=== PATIENT | male | born 1950 | race Caucasian/White ===

== ENCOUNTER → 2016-09-29 | Outpatient (REF) | payer BC ==
[2016-09-29 12:20] LABS: PHOSPHORUS LEVEL 2.8 MG/DL (2.5-4.9)
== END ==
LOC: M LAB REF 11:51
PROVIDERS: ATTEND Internal Medicine
DX: N18.3 Chronic kidney disease, stage 3 (moderate) (principal); N25.81 Secondary hyperparathyroidism of renal origin; E11.21 Type 2 diabetes mellitus with diabetic nephropathy

== ENCOUNTER → 2016-10-22 | Outpatient (REF) | payer BC ==
[2016-10-22 14:12] LABS: PERCENT SATURATION 31.2 % (19.7-37.4)
[2016-10-22 14:19] LABS: FOLATE 8.5 NG/ML (>5.4)
== END ==
LOC: M LAB REF 13:23
PROVIDERS: ATTEND Internal Medicine
DX: N18.3 Chronic kidney disease, stage 3 (moderate) (principal); E03.9 Hypothyroidism, unspecified; Z98.84 Bariatric surgery status

== ENCOUNTER → 2017-02-15 | Outpatient (CLI) | payer BC ==
[~2017-02-15] VITALS: Ht 170.2 cm; Wt 113.4 kg
[~2017-02-15] MED LIST: AMLO1TAB36 PO; DRIS50002 PO; FAMO1TAB25 PO; FEXO180T58 PO; LEVO50TA5 PO; LIDOCAINE 2% INJ 100 MG/5 ML SDV (FOR ANES.) As Ordered ONE; NS 1,000 ML IV ONE; PROPOFOL 500 MG/50 ML VIAL As Ordered ONE; ROCA0.25 PO; VITA100037 PO
--- NOTE | 2017-02-15 11:08 | ROOR ---
Patient Name: Elieser Wang Procedure Date: 02/15/2017 10:42 AM Date of : 1950 Age: 66 Room: [facility] Gender: Male Note Status: Finalized Procedure: Total Colonoscopy to Cecum Indications: Screening for colorectal malignant neoplasm Providers: Carroll Harden MD Referring MD: RAEGAN MODI JR, MD Requesting Provider: Medicines: Monitored Anesthesia Care Complications: No immediate complications. Procedure: Pre-Anesthesia Assessment: - The heart rate, respiratory rate, oxygen saturations, blood pressure, adequacy of pulmonary ventilation, and response to care were monitored throughout the procedure. The Colonoscope was introduced through the anus and advanced to the cecum, identified by appendiceal orifice and ileocecal valve. The colonoscopy was performed without difficulty. The patient tolerated the procedure well. The quality of the bowel preparation was good. Findings: The perianal and digital rectal examinations were normal. Non-bleeding internal hemorrhoids were found during retroflexion. The hemorrhoids were small and Grade I (internal hemorrhoids that do not prolapse). Scattered small-mouthed diverticula were found in the recto-sigmoid colon, sigmoid colon and descending colon. The exam was otherwise without abnormality on direct and retroflexion views. Impression: - Non-bleeding internal hemorrhoids. - Diverticulosis in the recto-sigmoid colon, in the sigmoid colon and in the descending colon. - The examination was otherwise normal on direct and retroflexion views. - No specimens collected. - The exam was otherwise normal to the cecum. Recommendation: - Patient has a contact number available for emergencies. The signs and symptoms of potential delayed complications were discussed with the patient. Return to normal activities tomorrow. Written discharge instructions were provided to the patient. - High fiber diet. - Discharge patient to home. - Continue present medications. - Repeat colonoscopy in 10 years for screening purposes. - Return to referring physician. - The findings and recommendations were discussed with the patient's family. Carroll Harden MD Carroll Harden MD 02/15/2017 11:07:52 AM This report has been signed electronically. Number of Addenda: 0 Note Initiated On: 02/15/2017 10:42 AM Estimated Blood Loss: Estimated blood loss: none.
[2017-02-15 11:25] VITALS: BP 195/101
== END | disposition home or self-care (01) ==
LOC: M OPP 09:16
PROVIDERS: ATTEND Internal Medicine Gastroenterology
DX: Z12.11 Encounter for screening for malignant neoplasm of colon (principal); K64.0 First degree hemorrhoids; K57.30 Diverticulosis of large intestine without perforation or abscess without bleeding; Z86.010 Personal history of colon polyps; I12.9 Hypertensive chronic kidney disease with stage 1 through stage 4 chronic kidney disease, or unspecified chronic kidney disease; E11.9 Type 2 diabetes mellitus without complications; E03.9 Hypothyroidism, unspecified; G47.8 Other sleep disorders; G47.30 Sleep apnea, unspecified; R06.83 Snoring; N18.9 Chronic kidney disease, unspecified; Z87.442 Personal history of urinary calculi; Z87.448 Personal history of other diseases of urinary system; Z98.84 Bariatric surgery status; Z79.899 Other long term (current) drug therapy

== ENCOUNTER → 2017-07-15 | Outpatient (REF) | payer BC ==
[~2017-07-15] MED LIST changes: -AMLO1TAB36 PO; +AMLO1TAB37 PO; -LIDOCAINE 2% INJ 100 MG/5 ML SDV (FOR ANES.) As Ordered ONE; -NS 1,000 ML IV ONE; -PROPOFOL 500 MG/50 ML VIAL As Ordered ONE; -VITA100037 PO; +VITA100067 PO
[2017-07-15 19:24] LABS: FOLATE 9.7 NG/ML
== END ==
LOC: M LAB REF 17:31
PROVIDERS: ATTEND Internal Medicine
DX: I12.9 Hypertensive chronic kidney disease with stage 1 through stage 4 chronic kidney disease, or unspecified chronic kidney disease (principal); Z98.84 Bariatric surgery status

== ENCOUNTER → 2017-07-30 | Outpatient (CLI) | payer OTHER ==
--- NOTE | 2017-07-30 12:49 | REP ---
MRI CERVICAL SPINE WITHOUT CONTRAST: HISTORY: Neck pain. 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 A disc bulge with associated osteophyte formation is present at the C3-4 level. There is minimal deformity of the spinal cord. The C3 neural foramina are patent. A disc bulge with associated osteophyte formation is present at the C4-5 level. There is mild spinal cord compression. Bilateral uncinate process hypertrophy is present. This produces severe and moderate narrowing of the right and left C4 neural foramina respectively. A disc bulge and small disc protrusion central and eccentric to the left with associated osteophyte formation are present at the C5-6 level. There is minimal spinal cord compression. Bilateral uncinate process hypertrophy is present. This produces severe and moderate narrowing of the right and left C5 neural foramina respectively. A disc bulge with associated osteophyte formation is present at the C6-7 level. There is moderate effacement of the thecal sac without spinal cord compression. Bilateral uncinate process hypertrophy is present. This produces moderate narrowing of the C6 neural foramina. A disc bulge and small disc protrusion central and eccentric to the right with associated osteophyte formation are present at the C7-T1 level. There is mild effacement of the thecal sac without spinal cord compression. A small right intraforaminal disc protrusion is present. There is severe narrowing of the right C7 neural foramen. The left C7 neural foramen is patent. There is no other disc bulge or herniation. The remaining neural foramina are patent. Small focal areas of increased signal intensity on T2-weighted images are present in the spinal cord at the C4-5 level. This represents myelomalacia. The C3-4 through C7-T1 intervertebral discs are decreased in height consistent with disc degeneration. A hemangioma is present in the C7 vertebral body. Increased signal intensity on T2-weighted images is present in the end plates of the C4-6 vertebral bodies. This represents degenerative change. There is ectasia of the left vertebral artery. IMPRESSION: 1. There is cervical spondylosis at the C3-4 through C7-T1 levels most significant at the C4-5 and C5-6 levels where there is mild and minimal spinal cord compression respectively. 2. There is focal myelomalacia at the C4-5 level. Signed by Sanjay Glez MD 07/30/2017 02:17 P
== END ==
LOC: M PLARAD 10:27
PROVIDERS: ATTEND Physical Medicine & Rehabilitation
DX: M54.2 Cervicalgia (principal)

== ENCOUNTER 2017-08-29 01:22 | Emergency (ER) | payer BC, OTHER | END 2017-08-29 04:10 | disposition left against medical advice (07) | LOC: M ED 01:22 | DX: Z53.29 Procedure and treatment not carried out because of patient's decision for other reasons (principal) ==

== ENCOUNTER → 2018-04-15 | Outpatient (CLI) | payer OTHER | LOC: M PLARAD 07:33 | DX: M50.221 Other cervical disc displacement at C4-C5 level (principal); M50.222 Other cervical disc displacement at C5-C6 level; M50.223 Other cervical disc displacement at C6-C7 level; M50.21 Other cervical disc displacement, high cervical region; M50.23 Other cervical disc displacement, cervicothoracic region | CPT/HCPCS: 72141 ==

== ENCOUNTER → 2018-06-07 | Outpatient (REF) | payer OTHER ==
[2018-06-07 16:28] LABS: IRON (FE) 83 UG/DL (65-175); PERCENT SATURATION 33.5 % (19.7-50.0); PHOSPHORUS LEVEL 3.2 MG/DL (2.5-4.9); TOTAL IRON BINDING CAPACITY 248 UG/DL (250-450)
[2018-06-07 16:47] LABS: FOLATE 9.5 NG/ML
[2018-06-07 16:47] LABS: PTH INTACT 86.3 PG/ML (18.5-88.0)
== END ==
LOC: M LAB REF 14:56
DX: Z98.84 Bariatric surgery status (principal); E11.22 Type 2 diabetes mellitus with diabetic chronic kidney disease; N25.81 Secondary hyperparathyroidism of renal origin; N18.3 Chronic kidney disease, stage 3 (moderate)

== ENCOUNTER → 2018-12-01 | Outpatient (REF) | payer MEDICARE ==
[~2018-12-01] MED LIST changes: -DRIS50002 PO; +DRIS50003 PO; +[UNRECOGNIZED DRUG - CODE] BLADIN; +[UNRECOGNIZED DRUG - CODE] TOP
[2018-12-01 18:24] LABS: PHOSPHORUS LEVEL 3.1 MG/DL (2.5-4.9)
[2018-12-01 18:34] LABS: PTH INTACT 108.6 PG/ML (18.5-88.0)
== END ==
LOC: M LAB REF 17:30
PROVIDERS: ATTEND Internal Medicine
DX: N18.3 Chronic kidney disease, stage 3 (moderate) (principal); E11.22 Type 2 diabetes mellitus with diabetic chronic kidney disease; N25.81 Secondary hyperparathyroidism of renal origin

== ENCOUNTER → 2019-06-12 | Outpatient (REF) | payer MEDICARE ==
[2019-06-12 16:27] LABS: PERCENT SATURATION 21.6 % (19.7-50.0)
[2019-06-12 16:36] LABS: PTH INTACT 69.2 PG/ML (18.5-88.0)
[2019-06-14 10:41] LABS: HEPATITIS C VIRUS ABY INDEX 0.2 INDEX (<0.8)
== END ==
LOC: M LAB REF 15:54
PROVIDERS: ATTEND Internal Medicine
DX: Z01.89 Encounter for other specified special examinations (principal); Z98.84 Bariatric surgery status; N25.81 Secondary hyperparathyroidism of renal origin; Z79.899 Other long term (current) drug therapy

== ENCOUNTER 2019-07-06 09:49 | Emergency (ER) | payer MEDICARE ==
[~2019-07-06] VITALS: Ht 170.2 cm; Wt 113.6 kg
[2019-07-06] MEDS ORDERED: ALBU8.5H (10:37)
[2019-07-06] MEDS ORDERED: PRED20TA (10:37)
[2019-07-06] MEDS ORDERED: DOXY100C37 (10:37)
[2019-07-06 10:38] LABS: BASO # 0.1 10^3/uL (0.0-0.2); BASO % 0.7 % (0.0-1.0); EOS # 0.2 10^3/uL (0.0-0.5); EOS % 1.5 % (0.0-3.0); HEMATOCRIT 41.8 % (42.0-52.0); HEMOGLOBIN 13.5 g/dl (13.5-17.5); LYMPH # 1.4 10^3/uL (1.5-5.0); LYMPH % 13.6 % (24.0-44.0); MEAN CORPUSCULAR HEMOGLOBIN 28.8 pg (27.0-33.0); MEAN CORPUSCULAR HGB CONC 32.3 g/dl (32.0-36.5); MEAN CORPUSCULAR VOLUME 89.1 fl (80.0-96.0); MONO # 0.8 10^3/uL (0.0-0.8); MONO % 7.5 % (0.0-5.0); NEUTROPHILS # 7.5 10^3/uL (1.5-8.5); NEUTROPHILS % 74.3 % (36.0-66.0); PLATELET COUNT, AUTOMATED 344 10^3/uL (150-450); RED BLOOD COUNT 4.69 10^6/uL (4.30-6.10); WHITE BLOOD COUNT 10.1 10^3/uL (4.0-10.0)
--- NOTE | 2019-07-06 10:55 | REP ---
Portable chest x-ray: Single view. History: Dyspnea and cough. Comparison chest x-ray: November 04, 2009. Findings: EKG monitoring electrodes overlie the chest. There are minimal degenerative changes in the thoracic spine. Heart size is borderline unchanged. The pleural angles are sharp. No infiltrate is seen. Pulmonary vasculature is not increased. No significant bony abnormality is seen. Impression: No acute disease. No infiltrate seen. Electronically Signed by Jovany Momin MD 07/06/2019 10:46 A
[2019-07-06 11:04] LABS: CALCIUM LEVEL 8.9 MG/DL (8.8-10.2); CREATININE FOR GFR 1.76 MG/DL (0.70-1.30); GLOMERULAR FILTRATION RATE 41.4 (>49); POTASSIUM SERUM 3.9 MEQ/L (3.5-5.1)
[2019-07-06 11:08] LABS: INFLUENZA A AMPLIFICATION NEGATIVE (NEGATIVE); INFLUENZA B AMPLIFICATION NEGATIVE (NEGATIVE)
--- NOTE | 2019-07-06 13:02 | REP ---
CT chest without contrast: History: Shortness of breath. Comparison is made with today's chest x-ray. CT findings: There is no evidence of pleural or pericardial effusion. There is mild ectasia of the ascending aorta, 4.3 cm in AP dimension. There is a calcification in the right thyroid gland. A large gallstone is visible in right upper quadrant. This gallstone measures 4.1 cm in greatest diameter. No adrenal abnormalities observed. The patient is status post gastric bypass. There are multifocal areas of mild peribronchial thickening consistent with bronchitis. Bronchi are not dilated. There are several areas of peribronchovascular opacity in the left lower lobe and to a lesser extent in the right lower lobe and lingula consistent with early bronchopneumonia. Tree in bud type configuration which generally suggests inflammatory changes. No endobronchial lesion is appreciated. Bone window settings show no bony destructive lesion. There are some degenerative disc changes in the thoracic spine. Impression: Findings consistent with bronchitis with patchy peribronchovascular areas of airspace consolidation consistent with early bronchopneumonia. There is a large gallstone in the gallbladder. Electronically Signed by Jovany Momin MD 07/06/2019 12:53 P
[2019-07-06 15:15] VITALS: BP 182/94
[2019-07-06] MEDS ORDERED: PRED20TA PO (15:19)
[2019-07-06] MEDS ORDERED: CEFD300CAP PO (15:19)
[2019-07-06] MEDS ORDERED: CEFDINIR 300 MG CAP (OMNICEF) PO ONE (15:30)
[2019-07-06 15:46] VITALS: O2SAT 91
--- NOTE | 2019-07-06 20:51 | ECGEPIP ---
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
== END 2019-07-06 16:15 | disposition home or self-care (01) ==
LOC: M ED 09:49
DX: J40 Bronchitis, not specified as acute or chronic (principal); I10 Essential (primary) hypertension; G47.30 Sleep apnea, unspecified; E03.9 Hypothyroidism, unspecified; Z98.84 Bariatric surgery status; Z79.899 Other long term (current) drug therapy

== ENCOUNTER → 2019-10-04 | Outpatient (CLI) | payer MEDICARE ==
[~2019-10-04] MED LIST changes: +ALBU8.5H; +CEFD300CAP PO; +DOXY100C37; +PRED20TA; +PRED20TA PO
--- NOTE | 2019-10-04 12:47 | REP ---
Left knee five views : There is no fracture or dislocation. Mineralization and joint spaces are normal. There are no calcifications or foreign bodies. Impression: Negative left knee . Electronically Signed by Bar Souza MD 10/04/2019 12:39 P
== END ==
LOC: M WUC 11:47
PROVIDERS: ATTEND Internal Medicine
DX: M25.562 Pain in left knee (principal)

== ENCOUNTER → 2019-10-18 | Outpatient (CLI) | payer MEDICARE ==
--- NOTE | 2019-10-18 15:02 | REP ---
Clinical: Pain. Technique: AP, lateral and oblique views of the left fifth toe. Findings: Examination is limited and underlying degenerative changes are appreciated. Fracture at the base of the proximal phalanx cannot be excluded. Correlation is recommended. No subcutaneous emphysema or foreign body. Impression: Cannot exclude fracture at the base of the proximal phalanx. Electronically Signed by Juan Colin MD 10/18/2019 02:54 P
== END ==
LOC: M WUC 14:35
PROVIDERS: ATTEND Nurse Practitioner Family
DX: M79.675 Pain in left toe(s) (principal)

== ENCOUNTER → 2020-01-30 | Outpatient (REF) | payer MEDICARE ==
[2020-01-30 17:04] LABS: PHOSPHORUS LEVEL 3.3 MG/DL (2.5-4.9)
[2020-01-30 17:15] LABS: PTH INTACT 123.2 PG/ML (18.5-88.0)
== END ==
LOC: M LAB REF 16:11
PROVIDERS: ATTEND Internal Medicine
DX: N18.3 Chronic kidney disease, stage 3 (moderate) (principal); N25.81 Secondary hyperparathyroidism of renal origin; E11.22 Type 2 diabetes mellitus with diabetic chronic kidney disease

== ENCOUNTER → 2021-02-18 | Outpatient (REF) | payer MEDICARE ==
[~2021-02-18] MED LIST changes: -DOXY100C37; +DOXY1CAP62; +FAMO10TA50 PO; -FAMO1TAB25 PO; +NEOM1AMP TOP; -[UNRECOGNIZED DRUG - CODE] TOP
== END ==
LOC: M LAB REF 16:48
PROVIDERS: ATTEND Internal Medicine
DX: N18.32 Chronic kidney disease, stage 3b (principal); N25.81 Secondary hyperparathyroidism of renal origin

== ENCOUNTER → 2021-11-18 | Outpatient (CLI) | payer MEDICARE ==
[~2021-11-18] MED LIST changes: +DOXY-443; -DOXY1CAP62; +FEXO-117 PO; -FEXO180T58 PO
== END ==
LOC: M WUC 15:18
PROVIDERS: ATTEND Internal Medicine
DX: M79.644 Pain in right finger(s) (principal)

== ENCOUNTER → 2021-12-04 | Outpatient (CLI) | payer MEDICARE | LOC: M RAD 13:55 | PROVIDERS: ATTEND Orthopaedic Surgery Hand Surgery | DX: R22.31 Localized swelling, mass and lump, right upper limb (principal) ==

== ENCOUNTER → 2021-12-12 | Outpatient (CLI) | payer MEDICARE ==
[~2021-12-12] MED LIST changes: +DIAZ5TAB PO; +diazePAM 5MG TABLET PO ONE
== END ==
LOC: M RAD 08:12
PROVIDERS: ATTEND Orthopaedic Surgery Hand Surgery
DX: M79.644 Pain in right finger(s) (principal)

== ENCOUNTER → 2021-12-18 | Outpatient (CLI) | payer MEDICARE ==
[~2021-12-18] MED LIST changes: +ATOR1TAB21; +BENA-8; +ERGO500029; +FAMO20TA5; +LEVO100T5; +XARE15TA; -diazePAM 5MG TABLET PO ONE
== END ==
LOC: M PLAIMG 08:01
PROVIDERS: ATTEND Orthopaedic Surgery Hand Surgery
DX: M79.644 Pain in right finger(s) (principal)

== ENCOUNTER 2021-12-22 08:08 | Emergency (ER) | payer MEDICARE ==
[~2021-12-22] VITALS: Ht 170.2 cm; Wt 115.9 kg
[~2021-12-22 08:08] MED LIST changes: -ATOR1TAB21; -BENA-8; -ERGO500029; -FAMO20TA5; -LEVO100T5; -XARE15TA
[2021-12-22] MEDS ORDERED: FAMO20TA5 (08:22)
[2021-12-22] MEDS ORDERED: ATOR1TAB21 (08:22)
[2021-12-22] MEDS ORDERED: LEVO100T5 (08:22)
[2021-12-22] MEDS ORDERED: BENA-8 (08:22)
[2021-12-22] MEDS ORDERED: ERGO500029 (08:22)
[2021-12-22] MEDS ORDERED: XARE15TA (08:22)
[2021-12-22] MEDS ORDERED: ONDANSETRON 4MG/2ML VIAL IV ONE (11:40)
[2021-12-22] MEDS ORDERED: NS 1,000 ML IV ONE (11:40)
[2021-12-22 12:10] LABS: BASO % 0.2 % (0.0-1.0); EOS % 0.1 % (0.0-3.0); HEMATOCRIT 37.4 % (42.0-52.0); HEMOGLOBIN 12.2 g/dl (13.5-17.5); LYMPH # 0.2 10^3/uL (1.5-5.0); LYMPH % 2.8 % (24.0-44.0); MEAN CORPUSCULAR HEMOGLOBIN 28.9 pg (27.0-33.0); MEAN CORPUSCULAR HGB CONC 32.6 g/dl (32.0-36.5); MEAN CORPUSCULAR VOLUME 88.6 fl (80.0-96.0); MONO # 0.6 10^3/uL (0.0-0.8); MONO % 7.3 % (2.0-8.0); NEUTROPHILS # 7.6 10^3/uL (1.5-8.5); NEUTROPHILS % 88.8 % (36.0-66.0); PLATELET COUNT, AUTOMATED 174 10^3/uL (150-450); RED BLOOD COUNT 4.22 10^6/uL (4.30-6.10); WHITE BLOOD COUNT 8.6 10^3/uL (4.0-10.0)
[2021-12-22 13:16] LABS: ALBUMIN 3.2 GM/DL (3.2-5.2); BILIRUBIN,TOTAL 4.5 MG/DL (0.2-1.0); CALCIUM LEVEL 8.2 MG/DL (8.8-10.2); CREATININE FOR GFR 2.29 MG/DL (0.70-1.30); GLOMERULAR FILTRATION RATE 30.3 (>49); POTASSIUM SERUM 3.9 MEQ/L (3.5-5.1); TOTAL PROTEIN 6.2 GM/DL (6.4-8.2)
[2021-12-22] MEDS ORDERED: METOCLOPRAMIDE INJ 10MG/2ML VIAL (J2765 PER 1) IV ONE (13:30)
[2021-12-22] MEDS ORDERED: MORPHINE 2 MG/ML 1ML VIAL IV ONE (13:30)
[2021-12-22] MEDS ORDERED: hydrALAZINE 20MG/ML 1ML VIAL (J0360 PER 20MG) IV ONE (14:25)
[2021-12-22 14:31] LABS: BILIRUBIN,DIRECT 3.1 MG/DL (0.0-0.2)
[2021-12-22] MEDS ORDERED: PIPERACILLIN/TAZOBACTAM SOD 3.375 GM in D5W MINI-BAG PLUS 50 ML IV ONE (15:30)
[2021-12-22] MEDS ORDERED: ACETAMINOPHEN SUSP DYE FREE 160 MG/5 ML UDC PO ONE (15:40)
[2021-12-22 17:09] LABS: HEPATITIS B CORE ANTIBODY IGM NEGATIVE (NEGATIVE); HEPATITIS B SURFACE ANTIGEN NEGATIVE (NEGATIVE); HEPATITIS C VIRUS ABY INDEX 0.1 INDEX (<0.8)
[2021-12-22] MEDS ORDERED: BENAZEPRIL 20 MG TAB PO ONE (19:35)
[2021-12-22 21:58] VITALS: BP 186/89
[2021-12-22] MEDS ORDERED: cloNIDine 0.1MG TABLET PO ONE (22:00)
[2021-12-22 22:04] VITALS: BP 189/89
== END 2021-12-22 22:17 | disposition short-term general hospital (02) ==
LOC: M ED 08:08
DX: R94.5 Abnormal results of liver function studies (principal); R50.9 Fever, unspecified; I10 Essential (primary) hypertension; E03.9 Hypothyroidism, unspecified; E78.5 Hyperlipidemia, unspecified; G47.33 Obstructive sleep apnea (adult) (pediatric); K21.9 Gastro-esophageal reflux disease without esophagitis; Z98.84 Bariatric surgery status; J30.89 Other allergic rhinitis; Z79.899 Other long term (current) drug therapy; Z79.890 Hormone replacement therapy; Z79.01 Long term (current) use of anticoagulants
CPT/HCPCS: 71045; 74176; 76705; 80053; 81001; 82248; 83605; 83690; 83880; 84484; 85025; 86705; 86709; 86803; 87040; 87077; 87186; 87340; 87798; 93005; 93041; 96361; 96365; 96375; 99285; J0360; J2270; J2543; J2765

== ENCOUNTER → 2022-09-01 | Outpatient (REF) | payer MEDICARE ==
[~2022-09-01] MED LIST changes: +ATOR1TAB21; +BENA-8; +ERGO500029; +FAMO20TA5; +LEVO100T5; +XARE15TA
[2022-09-01 17:14] LABS: URIC ACID 6.1 MG/DL (3.7-9.2)
[2022-09-01 17:17] LABS: PTH INTACT 53.1 PG/ML (18.5-88.0)
== END ==
LOC: M LAB REF 16:21
PROVIDERS: ATTEND Internal Medicine
DX: N18.32 Chronic kidney disease, stage 3b (principal)

== ENCOUNTER → 2022-12-03 | Outpatient (CLI) | payer MEDICARE | LOC: M PLAIMG 08:07 | PROVIDERS: ATTEND Internal Medicine | DX: K86.2 Cyst of pancreas (principal) ==

== ENCOUNTER → 2023-01-07 | Outpatient (REF) | payer MEDICARE | LOC: M LAB REF 12:17 | PROVIDERS: ATTEND Internal Medicine | DX: N18.32 Chronic kidney disease, stage 3b (principal) ==

== ENCOUNTER → 2023-08-02 | Outpatient (REF) | payer MEDICARE ==
[2023-08-02 17:36] LABS: PHOSPHORUS LEVEL 3.5 MG/DL (2.4-5.1); PTH INTACT 52.4 PG/ML (18.5-88.0)
== END ==
LOC: M LAB REF 16:27
PROVIDERS: ATTEND Internal Medicine
DX: N18.32 Chronic kidney disease, stage 3b (principal)

== ENCOUNTER → 2023-08-09 | Outpatient (CLI) | payer MEDICARE | LOC: M PLAIMG 13:09 | PROVIDERS: ATTEND Nurse Practitioner Family | DX: I71.40 Abdominal aortic aneurysm, without rupture, unspecified (principal) ==

== ENCOUNTER → 2023-10-07 | Outpatient (CLI) | payer MEDICARE | LOC: M RAD 10:37 | PROVIDERS: ATTEND Internal Medicine | DX: K86.2 Cyst of pancreas (principal) ==

== ENCOUNTER 2024-05-11 13:58 | Emergency (ER) | payer MEDICARE ==
[~2024-05-11] VITALS: Ht 172.7 cm; Wt 112.2 kg
[~2024-05-11 13:58] MED LIST changes: +DOXY-323; -DOXY-443
[2024-05-11 16:31] VITALS: BP 153/86; TEMP 97.3; O2SAT 96
== END 2024-05-11 16:44 | disposition home or self-care (01) ==
LOC: EDBD 13:58 → M ED 13:58
DX: S16.1XXA Strain of muscle, fascia and tendon at neck level, initial encounter (principal); S00.93XA Contusion of unspecified part of head, initial encounter; S40.012A Contusion of left shoulder, initial encounter; S30.811A Abrasion of abdominal wall, initial encounter; V43.52XA Car driver injured in collision with other type car in traffic accident, initial encounter; Y92.9 Unspecified place or not applicable; Y93.9 Activity, unspecified; Y99.9 Unspecified external cause status; M19.012 Primary osteoarthritis, left shoulder; M48.02 Spinal stenosis, cervical region; J30.89 Other allergic rhinitis; Z79.899 Other long term (current) drug therapy

== ENCOUNTER → 2024-05-17 | Outpatient (CLI) | payer MEDICARE | LOC: M PLAIMG 11:09 | PROVIDERS: ATTEND Thoracic Surgery (Cardiothoracic Vascular Surgery) | DX: I77.810 Thoracic aortic ectasia (principal) ==

== ENCOUNTER → 2024-10-26 | Outpatient (CLI) | payer MEDICARE ==
[~2024-10-26] MED LIST changes: -DOXY-323; +DOXY-441; -FEXO-117 PO; +FEXO-193 PO
== END ==
LOC: M RAD 15:51
PROVIDERS: ATTEND Internal Medicine
DX: K86.2 Cyst of pancreas (principal); N28.1 Cyst of kidney, acquired

== ENCOUNTER 2024-11-30 10:26 | Observation (INO) | payer MEDICARE ==
[~2024-11-30] VITALS: Ht 170.2 cm; Wt 109.6 kg
[~2024-11-30 10:26] MED LIST changes: -ATOR1TAB21; +ATOR1TAB21 PO; -BENA-8; +BENA-8 PO; -ERGO500029; +ERGO500029 PO; -FAMO20TA5; +FAMO20TA5 PO; -LEVO100T5; +LEVO100T5 PO; -XARE15TA; +XARE15TA PO; +[UNRECOGNIZED DRUG - CODE] BLADIN; -[UNRECOGNIZED DRUG - CODE] BLADIN
[2024-11-30 11:25] LABS: ALBUMIN 3.3 G/DL (3.2-5.2); BILIRUBIN,DIRECT 0.3 MG/DL (<0.4); BILIRUBIN,TOTAL 0.7 MG/DL (0.3-1.2); CALCIUM LEVEL 8.1 MG/DL (8.3-10.6); CREATININE FOR GFR 1.69 MG/DL (0.70-1.30); GLOMERULAR FILTRATION RATE 42.6 (>42); POTASSIUM SERUM 4.4 MMOL/L (3.5-5.1); TOTAL PROTEIN 6.5 G/DL (5.7-8.2)
[2024-11-30 13:14] LABS: BASO % 0.3 % (0.0-1.0); EOS % 0.1 % (0.0-3.0); HEMATOCRIT 39.2 % (42.0-52.0); HEMOGLOBIN 13.2 g/dl (13.5-17.5); LYMPH # 0.1 10^3/uL (1.5-5.0); LYMPH % 0.9 % (24.0-44.0); MEAN CORPUSCULAR HEMOGLOBIN 29.7 pg (27.0-33.0); MEAN CORPUSCULAR HGB CONC 33.7 g/dl (32.0-36.5); MEAN CORPUSCULAR VOLUME 88.3 fl (80.0-96.0); MONO # 0.5 10^3/uL (0.0-0.8); MONO % 5.1 % (2.0-8.0); NEUTROPHILS # 9.2 10^3/uL (1.5-8.5); NEUTROPHILS % 93.1 % (36.0-66.0); PLATELET COUNT, AUTOMATED 176 10^3/uL (150-450); RED BLOOD COUNT 4.44 10^6/uL (4.30-6.10); WHITE BLOOD COUNT 9.9 10^3/uL (4.0-10.0)
[2024-11-30] MEDS: NS (Normal Saline) 0.9% 1,000 ML IV ONE ×2 (13:20→18:34)
[2024-11-30] MEDS: LIDOCAINE 2% 5ML JELLY UROJET TOP ONE (14:49)
[2024-11-30 15:23] LABS: KETONE, URINE AUTO RFX NEGATIVE (NEGATIVE); LEUKOCYTE ESTERASE UR AUTO RFX NEGATIVE (NEGATIVE); MUCUS, URINE RFX SMALL (NEGATIVE); NITRITE, URINE AUTO RFX NEGATIVE (NEGATIVE); RBC, URINE AUTO RFX 9 /HPF (0-3); SQUAM EPITHELIAL CELL UR AURFX 0 /HPF (0-6); WBC, URINE AUTO RFX 0 /HPF (0-3)
[2024-11-30] MEDS ORDERED: ISOVUE-370 76% 100ML VIAL As Ordered ONE (17:44)
[2024-11-30] MEDS ORDERED: CALC1CAP31 PO (21:28)
[2024-11-30] MEDS ORDERED: MONT10TA97 PO (21:30)
[2024-11-30] MEDS ORDERED: AMLO1TAB24 PO (21:30)
[2024-11-30] MEDS ORDERED: HOME MED LIST COMPLETE! XX SCH (21:30)
[2024-11-30] MEDS ORDERED: ONDANSETRON 4MG 2ML VIAL IV PRN (22:00)
[2024-11-30 23:20] VITALS: BP 134/67; TEMP 99.5; O2SAT 97
[2024-11-30] MEDS: PANTOPRAZOLE 40MG VIAL IV SCH (23:26)
[2024-12-01] VITALS (14 sets, daily range): BP systolic 119–122; BP diastolic 69–73; TEMP 98.4–98.7; O2SAT 93–97
[2024-12-01] MEDS ORDERED: ALBUTEROL 90 MCG/ACT 8GM HFA INHALER INH PRN (00:20)
[2024-12-01] MEDS: LEVOTHYROXINE 100MCG TABLET (0.1MG) PO SCH (06:11)
[2024-12-01 06:13] LABS: BASO % 0.2 % (0.0-1.0); EOS % 0.2 % (0.0-3.0); HEMATOCRIT 33.2 % (42.0-52.0); LYMPH # 0.4 10^3/uL (1.5-5.0); LYMPH % 8.7 % (24.0-44.0); MEAN CORPUSCULAR HEMOGLOBIN 29.3 pg (27.0-33.0); MEAN CORPUSCULAR HGB CONC 32.5 g/dl (32.0-36.5); MEAN CORPUSCULAR VOLUME 90.2 fl (80.0-96.0); MONO # 0.5 10^3/uL (0.0-0.8); MONO % 10.1 % (2.0-8.0); NEUTROPHILS # 3.9 10^3/uL (1.5-8.5); PLATELET COUNT, AUTOMATED 160 10^3/uL (150-450); RED BLOOD COUNT 3.68 10^6/uL (4.30-6.10); WHITE BLOOD COUNT 4.8 10^3/uL (4.0-10.0)
[2024-12-01 06:14] LABS: HEMOGLOBIN 10.8 g/dl (13.5-17.5)
[2024-12-01 06:18] LABS: CALCIUM LEVEL 7.3 MG/DL (8.3-10.6); CREATININE FOR GFR 1.78 MG/DL (0.70-1.30); POTASSIUM SERUM 3.8 MMOL/L (3.5-5.1)
[2024-12-01 07:07] LABS: HEMOGLOBIN A1c 6.1 % (4.0-6.0)
[2024-12-01] MEDS: CALCITRIOL 0.25 MCG CAP (S0169) PO SCH (08:05)
[2024-12-01] MEDS: MONTELUKAST 10 MG TAB PO SCH (08:08)
[2024-12-01] MEDS: ATORVASTATIN 20 MG TAB PO SCH (08:08)
[2024-12-01] MEDS ORDERED: HEPARIN SOD (PORCINE) 5000UNITS/ML 1ML VIAL/SYRINGE SC SCH (09:00)
[2024-12-01] MEDS: amLODIPine 5 MG TAB PO SCH (09:40)
[2024-12-01] MEDS: RIVAROXABAN 15MG TAB (XARELTO) PO SCH (13:04)
[2024-12-02] MEDS ORDERED: FAMOTIDINE 20 MG TAB PO SCH (09:00)
== END 2024-12-01 14:41 | disposition home or self-care (01) ==
LOC: EDBD 10:26 → M ED 10:26 → M ED INP 10:27 → M PCU 23:10
PROVIDERS: ADMIT Internal Medicine Nephrology; ATTEND Internal Medicine Nephrology
DX: K52.9 Noninfective gastroenteritis and colitis, unspecified (principal); A08.11 Acute gastroenteropathy due to Norwalk agent; E87.20 Acidosis, unspecified; I48.0 Paroxysmal atrial fibrillation; N18.30 Chronic kidney disease, stage 3 unspecified; I12.9 Hypertensive chronic kidney disease with stage 1 through stage 4 chronic kidney disease, or unspecified chronic kidney disease; E11.22 Type 2 diabetes mellitus with diabetic chronic kidney disease; Z20.828 Contact with and (suspected) exposure to other viral communicable diseases; E86.0 Dehydration; J30.1 Allergic rhinitis due to pollen; G47.33 Obstructive sleep apnea (adult) (pediatric); Z98.84 Bariatric surgery status; E03.9 Hypothyroidism, unspecified; R91.8 Other nonspecific abnormal finding of lung field; Z90.49 Acquired absence of other specified parts of digestive tract; Z79.899 Other long term (current) drug therapy; Z79.01 Long term (current) use of anticoagulants; Z79.890 Hormone replacement therapy
CPT/HCPCS: 36415; 51701; 71045; 71250; 74176; 80048; 80076; 81001; 83036; 83605; 83690; 85025; 87040; 87486; 87507; 87581; 87633; 87798; 93005; 96374; 97116; 97161; 99285; G0378; J2470

== ENCOUNTER → 2025-02-22 | Outpatient (CLI) | payer MEDICARE ==
[~2025-02-22] MED LIST changes: +AMLO1TAB24 PO; +CALC1CAP31 PO; +MONT10TA97 PO
== END ==
LOC: M WUC 10:52
PROVIDERS: ATTEND Internal Medicine
DX: M17.0 Bilateral primary osteoarthritis of knee (principal); M25.461 Effusion, right knee; M25.462 Effusion, left knee

== ENCOUNTER → 2025-06-07 | Outpatient (CLI) | payer MEDICARE | LOC: M RAD 10:37 | PROVIDERS: ATTEND Thoracic Surgery (Cardiothoracic Vascular Surgery) | DX: I77.810 Thoracic aortic ectasia (principal) ==

== ENCOUNTER → 2025-07-24 | Outpatient (REF) | payer MEDICARE ==
[2025-07-24 13:53] LABS: PHOSPHORUS LEVEL 3.1 MG/DL (2.4-5.1)
[2025-07-24 13:56] LABS: PTH INTACT 56.8 PG/ML (18.5-88.0)
== END ==
LOC: M LAB REF 12:04
PROVIDERS: ATTEND Internal Medicine
DX: N18.32 Chronic kidney disease, stage 3b (principal)